=== PATIENT | male | born 2000 | race Caucasian/White ===

== ENCOUNTER 2023-01-22 12:07 | Emergency (ER) | payer BC, OTHER ==
--- NOTE | 2023-01-22 12:29 | ERPHSYRPT ---
- History of Present Illness Time Seen by Provider: 01/22/23 12:15 Source: patient Exam Limitations: no limitations Patient Subjective Stated Complaint: Laceration Triage Nursing Assessment: Patient ambulated back to ED and transferred self to bed. Patient A+O X3. Patient's skin pink, warm and dry. Patient states he was weedeating when a stick flew back and hit him in the right beth. Patient has 1 cm laceartion noted to right beth. Patient complains of pain 2/10. Physician History: Patient was working out in the yard. He is 22 years old he is a white male. He was using the weed Abundio and something flipped up and caused a 1 cm laceration to his skin in his right lower leg. Patient's tetanus status is up-to-date. He has no known drug allergies. He has no medical issues. Timing/Duration: today Quality: painful Severity: mild Location: extremities (Skin below the knee right leg laceration) Associated Symptoms: denies symptoms Allergies/Adverse Reactions: No Known Drug Allergies Allergy (Verified 01/22/23 12:12) Hx Tetanus, Diphtheria Vaccination/Date Given: Yes Hx Influenza Vaccination/Date Given: Yes Hx Pneumococcal Vaccination/Date Given: No Travel Risk - International Travel Have you traveled outside of the country in past 3 weeks: No - Coronavirus Screening Are you exhibiting any of the following symptoms?: No Close contact with a COVID-19 positive Pt in past 14-21 Days: No - Vaccine Status Have you recieved a Covid-19 vaccination: Yes 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 - Vaccination Dates Dates if Unknown: na - Review of Systems Constitutional: No Symptoms Eyes: No Symptoms Ears, Nose, & Throat: No Symptoms Respiratory: No Symptoms Cardiac: No Symptoms Abdominal/Gastrointestinal: No Symptoms Genitourinary Symptoms: No Symptoms Musculoskeletal: Injury (Below the knee right lower leg) Skin: Other (1 cm laceration below the knee right lower leg) Neurological: No Symptoms Psychological: No Symptoms Endocrine: No Symptoms Hematologic/Lymphatic: No Symptoms Immunological/Allergic: No Symptoms All Other Systems: Reviewed and Negative - Past Medical History Pertinent Past Medical History: No Neurological History: No Pertinent History - Past Surgical History Past Surgical History: Yes Other Surgical History: R LEG FRACTURE - Social History Smoking Status: Never smoker Exposure to second hand smoke: No Drug Use: none Patient Lives Alone: No - Nursing Vital Signs Nursing Vital Signs: Initial Vital Signs Temperature 97.6 F 01/22/23 12:13 Pulse Rate 93 H 01/22/23 12:13 Respiratory Rate 18 01/22/23 12:13 Blood Pressure 124/71 01/22/23 12:13 O2 Sat by Pulse Oximetry 100 01/22/23 12:13 Pain Scale Pain Intensity 2 - Physical Exam General Appearance: no apparent distress, alert, anxiety Eye Exam: PERRL/EOMI, eyes nml inspection Ears, Nose, Throat Exam: normal ENT inspection, moist mucous membranes Neck Exam: normal inspection, non-tender, supple, full range of motion Respiratory Exam: airway intact, No chest tenderness, No respiratory distress Gastrointestinal/Abdomen Exam: No tenderness Rectal Exam: not done Back Exam: normal inspection, normal range of motion, No CVA tenderness, No vertebral tenderness Extremity Exam: normal range of motion, pelvis stable, lacerations (1 cm vertically oriented laceration skin right lower leg below the knee. Wound explored. No foreign body appreciated with visual inspection or palpation. No active bleeding present.), tenderness (Mild tenderness to palpation at the laceration site.) Neurologic Exam: alert, oriented x 3, cooperative, director building II-XII nml as tested, normal mood/affect, nml cerebellar function, nml station & gait, sensation nml Skin Exam: laceration (See above extremity section) Lymphatic Exam: No adenopathy SpO2 Interpretation: normal SpO2: 100 O2 Delivery: Room Air Procedures - Laceration/Wound Repair Right Lower Anterior Other Time of Procedure: 12:15 Wound Location: Right, lower leg Wound Length (cm): 1 Wound's Depth, Shape: superficial, linear Wound Explored: clean (No foreign body noted when I evaluated the wound visually to the base in a bloodless field. Also no foreign body appreciated by palpation) Irrigated: Yes Hibiclens Prep: Yes Wound Repaired With: [place] (1 single staple) - Course Nursing assessment & vital signs reviewed: Yes - Progress Progress: improved, pain not gone completely Progress Note: 01/22/23 12:26 This patient's medical issue is 1 of low complexity. The level of complexity and the work-up performed is based on review of the patient's past medical history, medication list, drug allergy list, history of present illness and findings on physical examination. Patient did not need any lab studies or radiographic studies. The area was evaluated visually and inspected by palpation as well. Because he was working out in the yard, and the laceration is only 1 cm in length, I explained to him and his sister why I was putting just a single staple in place. This improves the approximation but does not make it so watertight in the event there may be dirt present that we are not appreciating after irrigating and cleansing. This will decrease the chance of infection. Patient will have a prescription for Keflex electronically sent to his pharmacy. Staple removal in 8 to 10 days. Counseled pt/family regarding: diagnosis, need for follow-up Medical Desision Making - Independent Historian Additional History obtained from: Family - Discussion of managment Agreed on:: Treatment plan, need for follow-up - Risk of complications The pt has a mod risk of morbidity or mortality based on: Need for prescription drug management - Departure Departure Disposition: Home Clinical Impression: Laceration of right lower leg Condition: Stable Critical Care Time: No Referrals: [facility] [Primary Care Provider] - Follow up/PCP as directed Additional Instructions: Keep the site clean and dry for 24 hours. After 24 hours, may wash the site daily with soap and water. Blot dry use a hairdryer and cover the bandage after washing and drying with a bandage. Staple removal in 8 to 10 days. Use Tylenol and ibuprofen for pain control. Prescriptions: Cephalexin Mh 500 mg [Keflex 500 mg] 500 mg PO TID #21 cap
[2023-01-22 12:52] VITALS: BP 120/80; PULSE 78; O2SAT 98
== END 2023-01-22 12:48 | disposition home or self-care (01) ==
LOC: ED 12:07
DX: S81.811A Laceration without foreign body, right lower leg, initial encounter (principal); W20.8XXA Other cause of strike by thrown, projected or falling object, initial encounter; Y93.H2 Activity, gardening and landscaping
CPT/HCPCS: 12001; 99282